=== PATIENT | female | born 1995 | race African-American/Black ===

== ENCOUNTER 2021-04-13 23:30 | Emergency (ER) | payer OTHER ==
[~2021-04-13] VITALS: Ht 167.6 cm; Wt 118.2 kg
[~2021-04-13 23:30] MED LIST: NO HOME MEDICATIONS
[2021-04-13 23:51] VITALS: TEMP 98.3
[2021-04-14] MEDS ORDERED: AMOXICILLIN 8751 TAB PO (00:09)
[2021-04-14 00:25] VITALS: BP 115/75; PULSE 90
== END 2021-04-14 00:25 | disposition home or self-care (01) ==
LOC: COL.ER 23:30
DX: J32.9 Chronic sinusitis, unspecified (principal); F17.210 Nicotine dependence, cigarettes, uncomplicated